=== PATIENT | male | born 1995 ===

== ENCOUNTER 2021-10-05 18:53 | Emergency (ER) | payer SELFPAY ==
[2021-10-05 20:26] LABS: Basophils # (Auto) 0.1 K/mm3 (0.0-0.1); Basophils % (Auto) 1.1 % (0.0-1.8); Eosinophils # (Auto) 0.2 K/mm3 (0.0-0.4); Hematocrit 45.2 % (35.5-45.6); Hemoglobin 15.2 gm/dl (11.8-15.2); Lymphocytes # (Auto) 2.7 K/mm3 (1.2-5.4); Lymphocytes % (Auto) 35.7 % (13.4-35.0); Mean Corpuscular HGB Conc 34 % (32-34); Mean Corpuscular Volume 97 fl (84-94); Monocytes # (Auto) 0.6 K/mm3 (0.0-0.8); Monocytes % (Auto) 8.4 % (0.0-7.3); Platelet Count 407 K/mm3 (140-440); Red Blood Count 4.68 M/mm3 (3.65-5.03); Red Cell Distribution Width 12.6 % (13.2-15.2)
--- NOTE | 2021-10-05 20:59 | Emergency Department Report ---
HPI - General Chief Complaint: Psych Time Seen by Provider: 10/05/21 19:22 - HPI HPI: 26-year-old male with history of depression presents complaining of suicidal ideation. The patient states he wants to end his life. He says he has felt this way for a while but is coming in finally today. He also states he is hungry and has not eaten all day. He is unable to explain why. When asked if he has a plan for how he would end his life he says no, although apparently he told other people differently. He also says he has command auditory hallucinations telling him to kill himself. He denies HI or visual hallucinations. When asked about physical symptoms or complaints he denies all other than feeling hungry. ED Past Medical Hx - Past Medical History Previous Medical History?: Yes Hx Psychiatric Treatment: Yes - Social History Smoking Status: Current Every Day Smoker Substance Use Type: Marijuana - Medications Home Medications: Home Medications Medication Instructions Recorded Confirmed Last Taken Type Escitalopram Oxalate [Lexapro] 5 mg PO QDAY #30 10/06/21 Unknown Rx QUEtiapine [SEROquel] 25 mg PO BID #60 tablet 10/06/21 Unknown Rx hydrOXYzine PAMOATE [Vistaril] 50 mg PO BID PRN #60 capsule 10/06/21 Unknown Rx traZODone [Desyrel] 50 mg PO QHS #30 tab 10/06/21 Unknown Rx ED Review of Systems ROS: Stated complaint: PSYCH Other details as noted in HPI Comment: All other systems reviewed and negative Constitutional: denies: chills, fever Eyes: denies: eye pain, vision change ENT: denies: throat pain, congestion Respiratory: denies: cough, shortness of breath Cardiovascular: denies: chest pain, palpitations Gastrointestinal: denies: abdominal pain, nausea, vomiting Genitourinary: denies: dysuria, frequency Musculoskeletal: denies: back pain, arthralgia Skin: denies: rash, lesions Neurological: denies: headache, weakness, numbness Psychiatric: depression, auditory hallucinations, suicidal thoughts. denies: visual hallucinations, homicidal thoughts Physical Exam - Physical Exam Vital Signs: Vital Signs 10/05/21 19:44 Temperature 98.7 F Pulse Rate 87 Respiratory 18 Rate Blood Pressure 117/71 [Left] O2 Sat by Pulse 98 Oximetry Physical Exam: GENERAL: Well developed and well nourished. No acute distress HEAD: Normocephalic. No obvious signs of trauma. ENT: Moist mucous membranes. EYES: Extraocular movements are intact. Pupils are equal round and reactive to light bilaterally NECK: Supple. Full ROM is intact. Trachea is midline. LUNGS: Nonlabored breathing. Equal chest rise bilaterally. Clear to auscultation bilaterally. CARDIOVASCULAR: Regular rate and rhythm. No murmurs or rubs. VASCULAR: Cap refill < 2 seconds ABDOMEN: Abdomen is soft and nondistended. There is no significant tenderness, guarding or rebound. SKIN: Skin is warm and dry NEURO: Patient is awake, alert, and oriented. planner intern II-XII grossly intact. No focal deficits. Normal motor and sensory exam throughout. Normal speech. MUSCULOSKELETAL: No obvious deformities. No significant tenderness. Normal ROM throughout. BACK/SPINE: No costovertebral angle tenderness. ED Course Vital Signs 10/05/21 19:44 Temperature 98.7 F Pulse Rate 87 Respiratory 18 Rate Blood Pressure 117/71 [Left] O2 Sat by Pulse 98 Oximetry ED Medical Decision Making - Lab Data Result diagrams: 10/05/21 20:01 10/05/21 20:01 - Medical Decision Making 26-year-old male presenting with suicidal ideation as well as command auditory hallucinations. No physical complaints. He is afebrile with normal vital signs. He has not grossly normal physical exam. 1013 has been signed and initiated. Full set of medical clearance labs have been sent. Labs have resulted and reveal no significant leukocytosis or anemia. Creatinine is within normal range and there are no significant electrolyte abnormalities. Patient is noted to have elevated blood alcohol level of 0.22. He is medically cleared for psychiatric evaluation placement nonetheless. Repeat alcohol level has been sent for the morning. Patient seen by the mental health/psychiatry team who recommended discontinuing the 1013 and discharging the patient with outpatient resources. Critical care attestation.: If time is entered above; I have spent that time in minutes in the direct care of this critically ill patient, excluding procedure time. ED Disposition Clinical Impression: Alcohol intoxication, Suicidal ideation, Depression Disposition: HOME / SELF CARE / HOMELESS Is pt being admited?: No Condition: Stable Instructions: Living With Depression, Binge-Drinking Information, Adult, Suici lisseth Feelings: How to Help Yourself Additional Instructions: Professional and Agency Contacts To help Resolve Crises(14/03) ID Crisis Line: Suicide Prevention Line: Crisis Text Line: Text START to 005714 Emergency: 911 Outpatient COMMUNITY Behavioral Health Resources: DEVINAYB: [facility] [address] [place], [place] [address] VEE: [facility] [address] [place] [address] JJ: [facility] [address] [place] [address] Tuesday thru Tuesday - 8am - 5pm [place]: [facility] Address: [address], [place] [address] [facility]: [facility] Address: [address] [place] [address] Tuesday thru Tuesday- 7am-2pm [facility] Address: [address] [place] [address] Tuesday thru Tuesday: 8:30AM-5PM OUTPATIENT MENTAL HEALTH RESOURCES [facility], [address] [place] [address] [facility] Ciarra Deshpande MD: [address] [facility] [address] [place], [place] [id number] [facility]: [address] [place], [place] [id number] [employer] [place], [place] [id number] [phone] [facility]: [address] [facility] [address] [place] [address] [facility]: [address] [facility] [place]. [facility] [id number] [facility] [address] [place], [place] Emiliano Calhoun MD: [address] [facility] [id number] [facility]: [address] [place] [address] [phone] ID CRISIS AND ACCESS LINE: * In case of an emergency, please contact the following numbers: ID Crisis and Access Line: Number: Crisis Text Line: (Text START) Number: 876885 Suicide Prevention Line: Number: Emergency Number: 911 SUBSTANCE ABUSE PROGRAMS: [facility]: Location: [place], [place] [facility] Address: [address] [place] [id number] [facility]: Address: [address] [place] [address] [facility]: Address: [address] [place] [address] [facility]: Address: [address] [place] [address] [facility] Address: [address] [place] [id number]. Please contact above numbers to attempt placement into free based program. Medicaid Programs: [facility]: Address: [address] [place] [address] [facility]: Address: [address] [place] [address] Prescriptions: traZODone [Desyrel] 50 mg PO QHS #30 tab Escitalopram Oxalate [Lexapro] 5 mg PO QDAY #30 QUEtiapine [SEROquel] 25 mg PO BID #60 tablet hydrOXYzine PAMOATE [Vistaril] 50 mg PO BID PRN #60 capsule PRN Reason: Anxiety Referrals: PRIMARY CARE,MD [Primary Care Provider] - 3-5 Days
[2021-10-05 21:26] LABS: BUN/Creatinine Ratio 6; Blood Urea Nitrogen 5 mg/dL (9-20); Calcium 8.8 mg/dL (8.4-10.2); Hemolysis Index 10
[2021-10-06 03:42] LABS: Amphetamine Screen,Urine PRESUMPTIVE NEGATIVE; Benzodiazepines Screen,Urine PRESUMPTIVE NEGATIVE; Cannabinoid Screen,Urine PRESUMPTIVE POSITIVE; Cocaine Screen,Urine PRESUMPTIVE NEGATIVE; Methadone Screen,Urine PRESUMPTIVE NEGATIVE; Opiate Screen,Urine PRESUMPTIVE NEGATIVE
[2021-10-06 04:12] LABS: Mucus,Urine FEW /HPF
[2021-10-06 04:16] LABS: Bilirubin,Urine Negative (Negative); Blood,Urine Negative (Negative); Color,Urine Yellow (Yellow); Urobilinogen,Urine < 2.0 mg/dL (<2.0)
--- NOTE | 2021-10-06 12:27 | Consultation ---
History of Present Illness - Reason for Consult Consult date: 10/06/21 Reason for consult: depression, SI - History of Present Psychiatric Illness The patient was seen today. He is a 26y/o male patient who presented to ER with depression, SI with no plan. During my evaluation, the patient verbalizes feeling depressed and anxious. He says he's been dealing with it for a long time. The patient also says he's been feeling suicidal for along time and decided to come in and get help. He says "I would like to see a therapist but I don't know how to go about the process really." When asking the patient if he had a plan to harm himself, he replies "no. I don't want to harm myself. Those are just thoughts I've had on and off for a long time." He denies hallucinations of any kind. The patient says he was at work and his job told him he needed to come. He says "I didn't even want to be here. I'm not trying to go to no inpatient place. But they told me I needed to come." The patient says he works at [employer] and makes good money. The patient apparently was drinking. The patient says he passed out. He says he has a problem drinking and drinks "a lot." When asking the patient exactly how much he drinks and what does he drink, he replied "whatever I get my hands on. I drink until I can't, until I pass out." He says he's also taken "ecstasy and smokes weed." He says he has family support but nobody really understands what he goes through. He says the drinking causes a lot of problems. He denies any past psychiatric history, or being on any psych medications. PAST PSYCHIATRIC HISTORY: Diagnoses: Denies Suicide attempts or Self-harm behavior: Denies Prior psychiatric hospitalizations: Denies Substance Abuse history: Alcohol, THC, ecstacy sometimes Previous psychiatric medications tried: Denies Outpatient treatment: Denies PAST MEDICAL HISTORY: None reported Family Psychiatric History: None reported or documented SOCIAL HISTORY Marital Status: Single Living Arrangements: states alone Employment Status: Employed Access to guns/weapons: Denies Education: high school grad History of Abuse: Denies Legal History: Denies REVIEW OF SYSTEMS Constitutional: Negative for weight loss ENT: Negative for stridor Respiratory: Negative for cough or hemoptysis All other systems reviewed and are negative MENTAL STATUS EXAMINATION General Appearance and Behavior: Age appropriate, good hygiene, wearing appropriate clothes. calm, cooperative Cooperation: Cooperative Psychomotor Behavior: Psychomotor normal Mood: depressed Affect and affective range: congruent with stated mood Thought Process: goal directed Thought Content: None Speech: Normal tone and pace Suicidal Ideation: on and off for awhile Homicidal Ideation: Denies Hallucinations: Denies Delusions: None elicited Impulse Control: Limited Insight and Judgment: Limited insight and fair judgment Memory: Limited Attention: attentive Orientation: a/o x 3 Assessment (1) Major Depressive Disorder (2) Alcohol Dependence with Alcohol Induced Mood Disorder Treatment Plan d/c 1013 Lexapro 5mg po daily Seroquel 25mg po BID Trazodone 50mg po qhs Vistaril 50mg po BID prn anxiety Medical: Per primary Disposition: Do not recommend acute psychiatric inpatient treatment. The patient can be managed on an outpatient basis. He understands that if SI return he is to seek immediate assistance. The retail advertising executive to further complete safety plan. The retail advertising executive to give the patient all necessary resources for outpatient psychiatry, including med management, CBT and alcohol rehab The patient to abstain from all alcohol use. The patient to follow up in 7 to 14 days with outpatient psych upon discharge Will sign off. Thanks Case staffed with Dr. Perez Medications and Allergies Allergies Allergy/AdvReac Type Severity Reaction Status Date / Time No Known Allergies Allergy Verified 10/05/21 19:30 Home Medications Medication Instructions Recorded Confirmed Last Taken Type Escitalopram Oxalate [Lexapro] 5 mg PO QDAY #30 10/06/21 Unknown Rx QUEtiapine [SEROquel] 25 mg PO BID #60 tablet 10/06/21 Unknown Rx hydrOXYzine PAMOATE [Vistaril] 50 mg PO BID PRN #60 capsule 10/06/21 Unknown Rx traZODone [Desyrel] 50 mg PO QHS #30 tab 10/06/21 Unknown Rx Mental Status Exam - Vital signs Last Vital Signs Temp 98.7 F 10/06/21 02:36 Pulse 71 10/06/21 02:36 Resp 16 10/06/21 02:36 BP 123/90 10/06/21 02:36 Pulse Ox 98 10/06/21 02:36 Results Result Diagrams: 10/05/21 20:01 10/05/21 20:01 Abnormal lab results 10/05/21 10/05/21 10/05/21 Range/Units 20:01 20:01 20:01 MCV 97 H (84-94) fl MCH 33 H (28-32) pg RDW 12.6 L (13.2-15.2) % Lymph % (Auto) 35.7 H (13.4-35.0) % Ida % (Auto) 8.4 H (0.0-7.3) % BUN 5 L (9-20) mg/dL Glucose 102 H (75-100) mg/dL Salicylates < 0.3 L (2.8-20.0) mg/dL Acetaminophen (10.0-30.0) ug/mL Plasma/Serum Alcohol (0-0.07) % 10/05/21 10/05/21 Range/Units 20:01 20:01 MCV (84-94) fl MCH (28-32) pg RDW (13.2-15.2) % Lymph % (Auto) (13.4-35.0) % Ida % (Auto) (0.0-7.3) % BUN (9-20) mg/dL Glucose (75-100) mg/dL Salicylates (2.8-20.0) mg/dL Acetaminophen 5.0 L (10.0-30.0) ug/mL Plasma/Serum Alcohol 0.22 H (0-0.07) % All other labs normal.
[2021-10-06] MEDS ORDERED: ESCITALOPRAM 10 MG TAB PO SCH (15:00)
[2021-10-06] MEDS ORDERED: QUEtiapine 25 MG TAB PO SCH (15:00)
--- NOTE | 2021-10-06 16:06 | Emergency Department Report ---
Blank Doc - Documentation Documentation: 26-year male patient on 1013. Patient evaluated by mental health with recommen dation to discontinue 1013 and discharged medication. Patient endorses heavy alcohol use but has a CIWA score of 0 prior to discharge
[2021-10-06 16:19] VITALS: BP 136/84
== END 2021-10-06 16:38 | disposition home or self-care (01) ==
LOC: ED 18:53
DX: F10.129 Alcohol abuse with intoxication, unspecified (principal); R45.851 Suicidal ideations; F32.A Depression, unspecified; F17.200 Nicotine dependence, unspecified, uncomplicated; F12.90 Cannabis use, unspecified, uncomplicated; Z20.822 Contact with and (suspected) exposure to COVID-19
CPT/HCPCS: 36415; 80048; 80307; 81001; 85025; 99284; U0003; 80320; G0480

== ENCOUNTER 2021-11-25 17:26 | Emergency (ER) | payer SELFPAY ==
--- NOTE | 2021-11-25 17:52 | Emergency Department Report ---
ED Psych HPI - General Chief Complaint: Psych Stated Complaint: psych Time Seen by Provider: 11/25/21 17:28 Source: EMS, old records reviewed Mode of arrival: Ambulatory Limitations: No Limitations - History of Present Illness Initial Comments: 26-year-old male with alcohol abuse, and mood disorder with self-reported diagnosis of depression and anxiety presents to the hospital with complaints of suicidal ideation x1 day. Patient denies any inciting factors. He continues to drink alcohol daily and states he has been drinking all day (beer and liquor). He denies history of alcohol withdrawal tremors or seizures. His plan is to shoot himself if he had access to a gun. He denies auditory hallucinations, visual hallucinations, and states he is compliant with psychiatric medications. As per medical record view patient was here September with similar complaints (although he endorsed auditory command hallucinations at that time) and was discharged on psychiatric medications. He does not follow-up with a psychiatrist as outpatient. Patient is intermittently tearful. No physical complaints reported - Related Data Previous Rx's Medication Instructions Recorded Last Taken Type Escitalopram Oxalate [Lexapro] 5 mg PO QDAY #30 10/06/21 Unknown Rx QUEtiapine [SEROquel] 25 mg PO BID #60 tablet 10/06/21 Unknown Rx hydrOXYzine PAMOATE [Vistaril] 50 mg PO BID PRN #60 capsule 10/06/21 Unknown Rx traZODone [Desyrel] 50 mg PO QHS #30 tab 10/06/21 Unknown Rx Allergies Allergy/AdvReac Type Severity Reaction Status Date / Time No Known Allergies Allergy Verified 11/25/21 17:34 ED Review of Systems ROS: Stated complaint: psych Other details as noted in HPI Comment: All other systems reviewed and negative ED Past Medical Hx - Past Medical History Previous Medical History?: Yes Hx Psychiatric Treatment: Yes - Social History Smoking Status: Current Every Day Smoker Substance Use Type: Marijuana - Medications Home Medications: Home Medications Medication Instructions Recorded Confirmed Last Taken Type Escitalopram Oxalate [Lexapro] 5 mg PO QDAY #30 10/06/21 Unknown Rx QUEtiapine [SEROquel] 25 mg PO BID #60 tablet 10/06/21 Unknown Rx hydrOXYzine PAMOATE [Vistaril] 50 mg PO BID PRN #60 capsule 10/06/21 Unknown Rx traZODone [Desyrel] 50 mg PO QHS #30 tab 10/06/21 Unknown Rx ED Physical Exam - General Limitations: No Limitations - Other Other exam information: General: No acute distress Head: Atraumatic Eyes: normal appearance ENT: Moist mucous membranes Neck: Normal appearance, no midline tenderness Chest: Clear to auscultation bilaterally CV: Regular rate and rhythm Abdomen: Soft, normal bowel sounds, nontender, nondistended, no rebound or guard ing Back: Normal inspection Extremity: Normal inspection, full range of motion Neuro: Alert O x 3, no facial asymmetry, speech clear, no gross motor sensory deficit Psych: Tearful Skin: No rash ED Course Vital Signs 11/25/21 11/25/21 17:30 19:48 Temperature 98.1 F Pulse Rate 94 H Respiratory 16 16 Rate Blood Pressure 177/97 [Right] O2 Sat by Pulse 98 99 Oximetry ED Medical Decision Making - Lab Data Result diagrams: 11/25/21 17:58 11/25/21 17:58 Lab Results 11/25/21 11/25/21 11/25/21 Range/Units 17:54 17:54 17:58 WBC 8.0 (4.5-11.0) K/mm3 RBC 4.94 (3.65-5.03) M/mm3 Hgb 16.0 H (11.8-15.2) gm/dl Hct 46.3 H (35.5-45.6) % MCV 94 (84-94) fl MCH 32 (28-32) pg MCHC 35 H (32-34) % RDW 12.4 L (13.2-15.2) % Plt Count 644 H (140-440) K/mm3 Lymph % (Auto) 32.7 (13.4-35.0) % Izard % (Auto) 10.1 H (0.0-7.3) % Eos % (Auto) 0.6 (0.0-4.3) % Baso % (Auto) 0.9 (0.0-1.8) % Lymph # (Auto) 2.6 (1.2-5.4) K/mm3 Izard # (Auto) 0.8 (0.0-0.8) K/mm3 Eos # (Auto) 0.1 (0.0-0.4) K/mm3 Baso # (Auto) 0.1 (0.0-0.1) K/mm3 Seg Neutrophils % 55.7 (40.0-70.0) % Seg Neutrophils # 4.5 (1.8-7.7) K/mm3 Sodium (137-145) mmol/L Potassium (3.6-5.0) mmol/L Chloride (98-107) mmol/L Carbon Dioxide (22-30) mmol/L Anion Gap mmol/L BUN (9-20) mg/dL Creatinine (0.8-1.3) mg/dL Estimated GFR ml/min BUN/Creatinine Ratio % Glucose (75-100) mg/dL Calcium (8.4-10.2) mg/dL Magnesium (1.7-2.3) mg/dL Urine Color Straw (Yellow) Urine Turbidity Clear (Clear) Urine pH 6.0 (5.0-7.0) Ur Specific [place] 1.004 (1.003-1.030) Urine Protein <15 mg/dl (Negative) mg/dL Urine Glucose (UA) Neg (Negative) mg/dL Urine Ketones Neg (Negative) mg/dL Urine Blood Neg (Negative) Urine Nitrite Neg (Negative) Urine Bilirubin Neg (Negative) Urine Urobilinogen < 2.0 (<2.0) mg/dL Ur Leukocyte Esterase Sm (Negative) Urine WBC (Auto) 2.0 (0.0-6.0) /HPF Urine RBC (Auto) < 1.0 (0.0-6.0) /HPF U Epithel Cells (Auto) < 1.0 (0-13.0) /HPF Salicylates (2.8-20.0) mg/dL Urine Opiates Screen Negative Urine Methadone Screen Negative Acetaminophen (10.0-30.0) ug/mL Ur Barbiturates Screen Negative Ur Phencyclidine Scrn Negative Ur Amphetamines Screen Negative U Benzodiazepines Scrn Negative Urine Cocaine Screen Negative U Marijuana (THC) Screen Negative Drugs of Abuse Note Disclamer Plasma/Serum Alcohol (0-0.07) % 11/25/21 11/25/21 11/25/21 Range/Units 17:58 17:58 17:58 WBC (4.5-11.0) K/mm3 RBC (3.65-5.03) M/mm3 Hgb (11.8-15.2) gm/dl Hct (35.5-45.6) % MCV (84-94) fl MCH (28-32) pg MCHC (32-34) % RDW (13.2-15.2) % Plt Count (140-440) K/mm3 Lymph % (Auto) (13.4-35.0) % Izard % (Auto) (0.0-7.3) % Eos % (Auto) (0.0-4.3) % Baso % (Auto) (0.0-1.8) % Lymph # (Auto) (1.2-5.4) K/mm3 Izard # (Auto) (0.0-0.8) K/mm3 Eos # (Auto) (0.0-0.4) K/mm3 Baso # (Auto) (0.0-0.1) K/mm3 Seg Neutrophils % (40.0-70.0) % Seg Neutrophils # (1.8-7.7) K/mm3 Sodium 139 (137-145) mmol/L Potassium 3.6 (3.6-5.0) mmol/L Chloride 98.9 (98-107) mmol/L Carbon Dioxide 24 (22-30) mmol/L Anion Gap 20 mmol/L BUN 6 L (9-20) mg/dL Creatinine 0.9 (0.8-1.3) mg/dL Estimated GFR > 60 ml/min BUN/Creatinine Ratio 7 % Glucose 105 H (75-100) mg/dL Calcium 9.3 (8.4-10.2) mg/dL Magnesium (1.7-2.3) mg/dL Urine Color (Yellow) Urine Turbidity (Clear) Urine pH (5.0-7.0) Ur Specific [place] (1.003-1.030) Urine Protein (Negative) mg/dL Urine Glucose (UA) (Negative) mg/dL Urine Ketones (Negative) mg/dL Urine Blood (Negative) Urine Nitrite (Negative) Urine Bilirubin (Negative) Urine Urobilinogen (<2.0) mg/dL Ur Leukocyte Esterase (Negative) Urine WBC (Auto) (0.0-6.0) /HPF Urine RBC (Auto) (0.0-6.0) /HPF U Epithel Cells (Auto) (0-13.0) /HPF Salicylates < 0.3 L (2.8-20.0) mg/dL Urine Opiates Screen Urine Methadone Screen Acetaminophen 15.3 (10.0-30.0) ug/mL Ur Barbiturates Screen Ur Phencyclidine Scrn Ur Amphetamines Screen U Benzodiazepines Scrn Urine Cocaine Screen U Marijuana (THC) Screen Drugs of Abuse Note Plasma/Serum Alcohol (0-0.07) % 11/25/21 11/25/21 Range/Units 17:58 17:58 WBC (4.5-11.0) K/mm3 RBC (3.65-5.03) M/mm3 Hgb (11.8-15.2) gm/dl Hct (35.5-45.6) % MCV (84-94) fl MCH (28-32) pg MCHC (32-34) % RDW (13.2-15.2) % Plt Count (140-440) K/mm3 Lymph % (Auto) (13.4-35.0) % Izard % (Auto) (0.0-7.3) % Eos % (Auto) (0.0-4.3) % Baso % (Auto) (0.0-1.8) % Lymph # (Auto) (1.2-5.4) K/mm3 Izard # (Auto) (0.0-0.8) K/mm3 Eos # (Auto) (0.0-0.4) K/mm3 Baso # (Auto) (0.0-0.1) K/mm3 Seg Neutrophils % (40.0-70.0) % Seg Neutrophils # (1.8-7.7) K/mm3 Sodium (137-145) mmol/L Potassium (3.6-5.0) mmol/L Chloride (98-107) mmol/L Carbon Dioxide (22-30) mmol/L Anion Gap mmol/L BUN (9-20) mg/dL Creatinine (0.8-1.3) mg/dL Estimated GFR ml/min BUN/Creatinine Ratio % Glucose (75-100) mg/dL Calcium (8.4-10.2) mg/dL Magnesium 2.10 (1.7-2.3) mg/dL Urine Color (Yellow) Urine Turbidity (Clear) Urine pH (5.0-7.0) Ur Specific [place] (1.003-1.030) Urine Protein (Negative) mg/dL Urine Glucose (UA) (Negative) mg/dL Urine Ketones (Negative) mg/dL Urine Blood (Negative) Urine Nitrite (Negative) Urine Bilirubin (Negative) Urine Urobilinogen (<2.0) mg/dL Ur Leukocyte Esterase (Negative) Urine WBC (Auto) (0.0-6.0) /HPF Urine RBC (Auto) (0.0-6.0) /HPF U Epithel Cells (Auto) (0-13.0) /HPF Salicylates (2.8-20.0) mg/dL Urine Opiates Screen Urine Methadone Screen Acetaminophen (10.0-30.0) ug/mL Ur Barbiturates Screen Ur Phencyclidine Scrn Ur Amphetamines Screen U Benzodiazepines Scrn Urine Cocaine Screen U Marijuana (THC) Screen Drugs of Abuse Note Plasma/Serum Alcohol 0.24 H (0-0.07) % - Medical Decision Making 26-year-old male with history of alcohol abuse and suicidal ideation presents with acute alcohol intoxication with suicidal ideation with plan. 1013 signed. Patient awaiting acceptance. CIWA protocol and Covid test ordered Critical Care Time: No Critical care attestation.: If time is entered above; I have spent that time in minutes in the direct care of this critically ill patient, excluding procedure time. ED Disposition Clinical Impression: Suicidal ideation, Medical clearance for psychiatric admission, Alcohol abuse Disposition: [address] [place] [address] Is pt being admited?: No Condition: Stable
[2021-11-25] MEDS ORDERED: LORazepam 2 MG TAB PO PRN ×2 (17:53)
[2021-11-25 18:33] LABS: BUN/Creatinine Ratio 7; Blood Urea Nitrogen 6 mg/dL (9-20); Calcium 9.3 mg/dL (8.4-10.2); Hemolysis Index 11
[2021-11-25 19:04] LABS: Basophils # (Auto) 0.1 K/mm3 (0.0-0.1); Basophils % (Auto) 0.9 % (0.0-1.8); Eosinophils # (Auto) 0.1 K/mm3 (0.0-0.4); Eosinophils % (Auto) 0.6 % (0.0-4.3); Hematocrit 46.3 % (35.5-45.6); Lymphocytes # (Auto) 2.6 K/mm3 (1.2-5.4); Lymphocytes % (Auto) 32.7 % (13.4-35.0); Mean Corpuscular HGB Conc 35 % (32-34); Mean Corpuscular Volume 94 fl (84-94); Monocytes # (Auto) 0.8 K/mm3 (0.0-0.8); Monocytes % (Auto) 10.1 % (0.0-7.3); Platelet Count 644 K/mm3 (140-440); Red Blood Count 4.94 M/mm3 (3.65-5.03); Red Cell Distribution Width 12.4 % (13.2-15.2)
[2021-11-25 19:33] LABS: Bilirubin,Urine NEG (Negative); Blood,Urine NEG (Negative); Color,Urine Straw (Yellow); Protein,Urine <15 mg/dL mg/dL (Negative); RBC,Urine < 1.0 /HPF (0.0-6.0); Urobilinogen,Urine < 2.0 mg/dL (<2.0)
[2021-11-25 19:43] LABS: Amphetamine Screen,Urine Negative; Benzodiazepines Screen,Urine Negative; Cannabinoid Screen,Urine Negative; Cocaine Screen,Urine Negative; Methadone Screen,Urine Negative; Opiate Screen,Urine Negative
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
[2021-11-26 12:28] VITALS: BP 145/91
[2021-11-26] MEDS: CITALOPRAM 20 MG TAB PO SCH (12:36)
--- NOTE | 2021-11-26 13:08 | Event Note ---
Date: 11/26/21 This patient is ready to be transferred to the psychiatric hospital at this time. Patient appears medically stable and without complaints.
== END 2021-11-26 13:42 ==
LOC: EEVIPCON 17:26 → ED 17:26
DX: R45.851 Suicidal ideations (principal); Z20.822 Contact with and (suspected) exposure to COVID-19; Z13.30 Encounter for screening examination for mental health and behavioral disorders, unspecified; F15.10 Other stimulant abuse, uncomplicated; F17.200 Nicotine dependence, unspecified, uncomplicated; F12.90 Cannabis use, unspecified, uncomplicated
CPT/HCPCS: 36415; 80048; 80307; 81001; 83735; 85025; 99285; U0003; 80320; G0480